=== PATIENT | male | born 1980 | race Caucasian/White ===

== ENCOUNTER 2017-10-02 10:14 | Emergency (ER) | payer OTHER ==
[2017-10-02 10:19] VITALS: BP 133/77
[2017-10-02] MEDS ORDERED: LIDOCAINE 1% INJ-PF (10 MG/ML) 30 ML SDV INJ ONE (10:47)
[2017-10-02] MEDS ORDERED: DIPH/PERTUSS(ACELL)/TETANUS VAC/PF 0.5 ML SYR (>=10YO) IM ONE (10:47)
--- NOTE | 2017-10-02 10:49 | ER Document Report ---
ED Medical Screen (RME) - General Chief Complaint: Elbow Injury Stated Complaint: ELBOW INJURY Time Seen by Provider: 10/02/17 10:44 TRAVEL OUTSIDE OF THE [place] IN LAST 30 DAYS: No - HPI Notes: 10/02/17 10:47 Patient is a 37-year-old male no significant past medical history who presents to the ED complaining of right elbow pain and laceration status post fall prior to arrival. Patient states that he was playing on a playground with his son when he slipped off and landed on his elbow. Patient states that he could see the bone through the open wound. He is not sure of his last tetanus. No other concerns or complaints at this time. Denies any chest pain, trouble breathing, numbness/tingling, paralysis/weakness. I have treated and performed a rapid initial assessment of this patient. A comprehensive ED assessment and evaluation of the patient, analysis of test results and completion of medical decision making process will be conducted by additional ED providers. PHYSICAL EXAMINATION: GENERAL: Well-appearing, well-nourished and in no acute distress. A&Ox4. Answers questions appropriately. LUNGS: Breath sounds clear to auscultation bilaterally and equal. No wheezes rales or rhonchi. HEART: Regular rate and rhythm without murmurs, rubs, gallops. Extremities: No cyanosis, clubbing, or edema b/l. NEUROLOGICAL: Normal speech, normal gait. PSYCH: Normal mood, normal affect. MS: rt elbow: FROM. Strength 5+/5. N/V intact distal. Skin: rt elbow: brief exam showed a laceration that has the potential to be an 'open fracture' - Related Data Allergies/Adverse Reactions: No Known Allergies Allergy (Unverified 02/13/16 13:09) Past Medical History - Social History Chew tobacco use (# tins/day): No Frequency of alcohol use: None Drug Abuse: None Renal/ Medical History: Denies: Hx Peritoneal Dialysis Past Surgical History: Reports: Hx Orthopedic Surgery - Immunizations Hx Diphtheria, Pertussis, Tetanus Vaccination: Yes Physical Exam - Vital signs Vitals: Temp Pulse Resp BP Pulse Ox 98.8 F 72 14 133/77 H 97 10/02/17 10:18 10/02/17 10:18 10/02/17 10:18 10/02/17 10:18 10/02/17 10:18 Course - Vital Signs Vital signs: Temp Pulse Resp BP Pulse Ox 98.8 F 72 14 133/77 H 97 10/02/17 10:18 10/02/17 10:18 10/02/17 10:18 10/02/17 10:18 10/02/17 10:18
--- NOTE | 2017-10-02 11:24 | ER Document Report ---
ED General - General Chief Complaint: Elbow Injury Stated Complaint: ELBOW INJURY Time Seen by Provider: 10/02/17 10:44 TRAVEL OUTSIDE OF THE [place] IN LAST 30 DAYS: No - HPI Notes: 37-year-old male presents to the ED for complaints of a laceration to his left elbow he was playing with his son, accidentally hit his elbow on the slide while he is playing for his son. Denies any head trauma change in level consciousness. Denies any other injury. Unsure if his tetanus is not up-to- date. Pain is 10 out of 10, throbbing, has not had any medication for this. Denies any numbness or tingling to bilateral upper extremities. Denies any known injury. No active bleeding. Bleeding is controlled. Denies being on blood thinners. Denies fevers, chills, numbness or tingling in bilateral upper or lower extremities equally, muscle paralysis, weakness in bilateral upper or lower extremities equally or rash. - Related Data Allergies/Adverse Reactions: No Known Allergies Allergy (Unverified 02/13/16 13:09) Past Medical History - General Information source: Patient - Social History Smoking Status: Never Smoker Chew tobacco use (# tins/day): No Frequency of alcohol use: None Drug Abuse: None Family History: Reviewed & Not Pertinent Patient has suicidal ideation: No Patient has homicidal ideation: No Renal/ Medical History: Denies: Hx Peritoneal Dialysis Past Surgical History: Reports: Hx Orthopedic Surgery - Immunizations Hx Diphtheria, Pertussis, Tetanus Vaccination: Yes Review of Systems - Review of Systems Constitutional: No symptoms reported EENT: No symptoms reported Cardiovascular: No symptoms reported Respiratory: No symptoms reported Gastrointestinal: No symptoms reported Genitourinary: No symptoms reported Male Genitourinary: No symptoms reported Musculoskeletal: No symptoms reported Skin: See HPI Hematologic/Lymphatic: No symptoms reported Neurological/Psychological: No symptoms reported Physical Exam - Vital signs Vitals: Temp Pulse Resp BP Pulse Ox 98.8 F 72 14 133/77 H 97 10/02/17 10:18 10/02/17 10:18 10/02/17 10:18 10/02/17 10:18 10/02/17 10:18 - Notes Notes: PHYSICAL EXAMINATION: GENERAL: Well-appearing, well-nourished and in no acute distress. HEAD: Atraumatic, normocephalic. EYES: Pupils equal round and reactive to light, extraocular movements intact, sclera anicteric, conjunctiva are normal. ENT: Nares patent, oropharynx clear without exudates. Moist mucous membranes. NECK: Normal range of motion, supple without lymphadenopathy LUNGS: Breath sounds clear to auscultation bilaterally and equal. No wheezes rales or rhonchi. HEART: Regular rate and rhythm without murmurs ABDOMEN: Soft, nontender, nondistended abdomen. No guarding, no rebound. No masses appreciated. Musculoskeletal: Normal range of motion, no pitting or edema. No cyanosis. 2 cm linear laceration left elbow. no pain abduction, flexion, supination, pronation or extension. Roll On Man + 2 BUE equally. APROM in shoulder. DTR +2 in BUE equally. Noted crepitus with APROM in elbow. negative drop arm, neer sign, marte test. Full motor and sensory function in TESHA. No vascular compromise. No erythema or induration noted to area. Intact median, ulnar and radial nerves bilaterally and equally. NEUROLOGICAL: Cranial nerves grossly intact. Normal speech, normal gait. Normal sensory, motor exams PSYCH: Normal mood, normal affect. SKIN: Warm, Dry, normal turgor, no rashes or lesions noted. Course - Re-evaluation Re-evalutation: 10/02/17 12:02 Healthy 37-year-old male who is afebrile, vitals stable and in no distress presents for laceration repair after injuring himself fall on the playground with his son approximately 2 hours ago. Tetanus is not up-to-date, tetanus given today. X-ray left elbow negative for any foreign body, fractures or dislocations. No consent given to do laceration repair. Patient tolerated procedure without incident. Discussed with patient that he will need to have his taken out in 14-21 days due to the fact that it is directly on the elbow joint therefore there is a high recurrence of possible dehiscence due to stress and the sutures, to see if the patient will place him in a loose splint to release tension on the sutures. Advised patient to be seen by his primary care doctor for wound reevaluation in 3-5 days. Prophylactic antibiotics given to the patient outside while it was raining when he lacerated his left elbow playing with his son at a local playground. After performing a Medical Screening Examination, I estimate there is LOW risk for OPEN FRACTURE, COMPARTMENT SYNDROME, TENDON RUPTURE, ACUTE NEUROVASCULAR INJURY, or RETAINED FOREIGN BODY, thus I consider the discharge disposition reasonable. Also, there is no evidence or peritonitis, sepsis, or toxicity. I have reevaluated this patient multiple times and no significant life threatening changes are noted. The patient and I have discussed the diagnosis and risks, and we agree with discharging home with close follow-up with the understanding that symptoms and presentations can change. We also discussed returning to the Emergency Department immediately if new or worsening symptoms occur. We have discussed the symptoms which are most concerning (e.g., changing or worsening pain, fever , numbness, weakness, cool or painful digits) that necessitate immediate return.Advised take [id number] ibuprofen and Tylenol as needed for pain. Monitor site for any signs and symptoms of infection such as erythema, purulent drainage, warmth to touch increasing. Patient discharged home - Vital Signs Vital signs: Temp Pulse Resp BP Pulse Ox 98.8 F 72 14 133/77 H 97 10/02/17 10:18 10/02/17 10:18 10/02/17 10:18 10/02/17 10:18 10/02/17 10:18 Procedures - Laceration/Wound Repair Left Elbow Time completed: 11:51 Wound length (cm): 2 - cm Wound's Depth, Shape: Superficial Laceration pre-procedure: Betadine prep applied, Sterile drapes applied, Shur- Clens applied, Other - She irrigation with 200 mL normal saline, no foreign body noted on examination of wound. Anesthetic type: 1% Lidocaine Volume Anesthetic (mLs): 4 - mL Wound explored: Clean, No foreign body removed Wound Debrided: Minimal Wound Repaired With: Sutures Suture Size/Type: 4:0, Ethilon Number of Sutures: 6 Layer Closure?: No Post-procedure wound care: Splint applied - consent by patient given to place 45 degree left long arm splint to utilize sutures ,. cms intact, sensory motor function intact in bilateral upper extremities prior to splint application fiberglass splint placed without incident. cms intact 20 minutes after splint application. Splint is in good alignment. Bilateral upper extremities with motor and sensory function intact 20 minutes after application. Pt stated that splint felt comfortable. Discharge - Discharge Clinical Impression: Laceration of elbow Qualifiers: Encounter type: initial encounter Laterality: left Qualified Code(s): S51.012A - Laceration without foreign body of left elbow, initial encounter Condition: Stable Disposition: HOME, SELF-CARE Instructions: Tetanus Immunization Given ([facility]), Prophylactic Antibiotic ([facility]), Laceration Care ([facility]), Soap Cleansing ([facility]) Additional Instructions: Laceration Care Your laceration has been sutured to keep the skin edges aligned during healing. The time of suture removal depends on the nature and location of your cut. Please follow the care instructions the doctor has outlined for you and return for further care, according to the schedule you've been given. Keep the wound and dressing clean. Unless you were told otherwise, you may shower daily, blotting the wound dry with a clean, unused towel. At other times, If the dressing gets wet or blood soaked, remove it and blot the wound dry, then reapply a new dressing. Unless you were instructed otherwise, dressings should be changed at least daily. If any signs of infection occur (swelling, redness, increasing tenderness, red streaks, tender lumps in the armpit or groin above the laceration, or fever) , see the doctor immediately. Sutures need to be removed in 14-21 days. Advised wound check in 3-5 days. Take antibiotics with food. Wash with soap and water, and extremity tingling to legs until sutures are removed. No heavy lifting. a splint has been applied to help relieve tension off the sutures. keep dry for the first 24-48 hours. if you noticed any erythema, purulent drainage, warmth to touch, return to the ER for reevaluation. Return immediately for any new or worsening symptoms. Follow up with primary care provider, call tomorrow to make followup appointment. Prescriptions: Cephalexin Monohydrate [Keflex 500 mg Capsule] 500 mg PO BID #10 capsule Forms: Return to Work Referrals: GISELA PERALTA MD [ACTIVE STAFF] - Follow up as needed
--- NOTE | 2017-10-02 11:28 | RADIOLOGY REPORT (SQ) ---
EXAM DESCRIPTION: ELBOW RIGHT OVER 2 VIEWS COMPLETED DATE/TIME: 10/02/2017 11:18 am REASON FOR STUDY: rt elbow pain s/p inury with laceration COMPARISON: 02/13/2016 NUMBER OF VIEWS: Four views. TECHNIQUE: AP, lateral, and both oblique radiographic images acquired of the right elbow. LIMITATIONS: None. FINDINGS: MINERALIZATION: Normal. BONES: No acute fracture or dislocation. No worrisome bone lesions. JOINT: No elbow joint effusion. SOFT TISSUES: Olecranon soft tissue swelling with air bubbles from laceration. No retained radiopaqu e foreign body. No olecranon bony injury. OTHER: No other significant finding. IMPRESSION: Olecranon soft tissue swelling with air bubbles from laceration. No retained radiopaque foreign body. No bony olecranon injury TECHNICAL DOCUMENTATION: JOB ID: [id number] [employer]- All Rights Reserved Reading location - IP/workstation name: [email or web address]
== END 2017-10-02 12:13 | disposition home or self-care (01) ==
LOC: ER 10:14
DX: S51.012A Laceration without foreign body of left elbow, initial encounter (principal); W10.8XXA Fall (on) (from) other stairs and steps, initial encounter; W22.09XA Striking against other stationary object, initial encounter; Y93.89 Activity, other specified; Y92.838 Other recreation area as the place of occurrence of the external cause; Z23 Encounter for immunization
CPT/HCPCS: 99283; 90471; 73080; 90715; 12001; J3490